=== PATIENT | female | born 1955 | race Caucasian/White ===

== ENCOUNTER 2016-12-03 00:17 | Observation (INO) | payer BC ==
[2016-12-03] MEDS ORDERED: ACETAMINOPHEN 325 MG TABLET PO ONE (00:26)
[2016-12-03] MEDS ORDERED: LIDOCAINE 2% VISCOUS SOLN 20 ML UDCUP PO ONE (01:38)
[2016-12-03] MEDS ORDERED: ONDANSETRON 4 MG TAB.RAPDIS PO ONE (01:38)
[2016-12-03] MEDS ORDERED: MAG HYDROX/AL HYDROX/SIMETH SUSP 30 ML UDCUP PO ONE (01:38)
[2016-12-03 02:11] LABS: ALANINE AMINOTRANSFERASE 30 U/L (9-52); ALBUMIN 4.7 g/dL (3.5-5.0); ALKALINE PHOSPHATASE 102 U/L (38-126); ANION GAP 16 (5-19); ASPARTATE AMINO TRANSFERASE 26 U/L (14-36); BILIRUBIN,DIRECT 0.5 mg/dL (0.0-0.4); BILIRUBIN,TOTAL 1.2 mg/dL (0.2-1.3); BLOOD UREA NITROGEN 12 mg/dL (7-20); CARBON DIOXIDE 26 mmol/L (22-30); CHLORIDE 101 mmol/L (98-107); CREATININE RESULT 0.95 mg/dL (0.52-1.25); GLUCOSE 126 mg/dL (75-110); LIPASE 22.6 U/L (23-300); POTASSIUM 3.9 mmol/L (3.6-5.0); SODIUM 143.4 mmol/L (137-145); TOTAL PROTEIN 8.2 g/dL (6.3-8.2)
[2016-12-03 02:19] LABS: ABSOLUTE BASOPHILS # (AUTO) 0.1 10^3/uL (0.0-0.2); ABSOLUTE EOSINOPHILS # (AUTO) 0.3 10^3/uL (0.0-0.6); ABSOLUTE LYMPHOCYTES (AUTO) 1.6 10^3/uL (0.5-4.7); ABSOLUTE MONOCYTES (AUTO) 0.8 10^3/uL (0.1-1.4); BASOPHILS % (AUTO) 0.8 % (0-2); EOSINOPHILS % (AUTO) 2.2 % (0-6); HEMATOCRIT 43.7 % (36.0-47.0); HEMOGLOBIN 14.9 g/dL (12.0-15.5); LYMPHOCYTES % (AUTO) 10.8 % (13-45); MEAN CORPUSCULAR HEMOGLOBIN 28.3 pg (27.0-33.4); MEAN CORPUSCULAR HGB CONC 34.2 g/dL (32.0-36.0); MEAN CORPUSCULAR VOLUME 83 fl (80-97); MONOCYTES % (AUTO) 5.5 % (3-13); RED BLOOD COUNT 5.28 10^6/uL (3.72-5.28); RED CELL DISTRIBUTION WIDTH 14.5 % (11.5-14.0); SEGMENTED NEUTROPHILS % (AUTO) 80.7 % (42-78); WHITE BLOOD COUNT 14.9 10^3/uL (4.0-10.5)
[2016-12-03] MEDS ORDERED: MORPHINE SULFATE 10 MG/ML INJ IV ONE (02:21)
[2016-12-03] MEDS ORDERED: ONDANSETRON HCL INJ/PF 4 MG/2 ML SDV IV ONE (02:27)
--- NOTE | 2016-12-03 02:46 | ER Document Report ---
ED GI/ - General Chief Complaint: Abdominal Pain Stated Complaint: ABDOMINAL PAIN Notes: Patient is a 60 year old female who presents emergency Department complaining of severe right upper quadrant epigastric pain that started Thursday and has become progressively worse over the past two days. She describes that pain as severe spasms with cramping. Nothing has improved her pain, has become more frequent since thursday, has had decreased appetite but originally got worse post prandial. Tonight has assocaited emesis, nausea. Admits to last BM Thursday and was loose. Denies fevers, chills Past medical history significant for hyperlipidemia, hypothyroidism, hypertension, depression. Denies any history of irritable bowel disease Past surgical history significant for thyroid resection, tubal ligation Social history denies any tobacco, alcohol or drug use. PCP: Carmelina HARDING with [facility] TRAVEL OUTSIDE OF THE [place] IN LAST 30 DAYS: No - Related Data Allergies/Adverse Reactions: codeine [Codeine] Allergy (Verified 04/30/15 14:01) Penicillins Adverse Reaction (Intermediate, Verified 03/09/15 10:09) yeast infection tetracycline [Tetracycline] Adverse Reaction (Intermediate, Verified 03/09/15 10 :09) yeast infection Past Medical History - Social History Smoking Status: Never Smoker Family History: Other Patient has suicidal ideation: No Patient has homicidal ideation: No - Past Medical History Cardiac Medical History: Reports: Hx Hypercholesterolemia, Hx Hypertension Denies: Hx Coronary Artery Disease, Hx Heart Attack Pulmonary Medical History: Denies: Hx Asthma, Hx Bronchitis, Hx COPD, Hx Pneumonia Neurological Medical History: Denies: Hx Cerebrovascular Accident, Hx Seizures Renal/ Medical History: Denies: Hx Peritoneal Dialysis Musculoskeltal Medical History: Denies Hx Arthritis Past Surgical History: Reports: Hx Thyroid Surgery - thyroidectomy, Hx Tonsillectomy, Hx Tubal Ligation. Denies: Hx Hysterectomy - Immunizations Immunizations up to date: Yes Hx Diphtheria, Pertussis, Tetanus Vaccination: Yes Review of Systems - Review of Systems Constitutional: No symptoms reported EENT: No symptoms reported Cardiovascular: No symptoms reported Respiratory: No symptoms reported Gastrointestinal: See HPI Genitourinary: No symptoms reported Female Genitourinary: No symptoms reported -: Yes All other systems reviewed and negative Physical Exam - Vital signs Vitals: Temp Pulse Resp BP Pulse Ox 97.9 F 92 20 183/111 H 97 12/03/16 00:20 12/03/16 00:20 12/03/16 00:20 12/03/16 00:20 12/03/16 00:20 - Notes Notes: PHYSICAL EXAM GENERAL: Alert, interacts well. HEAD: Normocephalic, atraumatic. EYES: Pupils equal, round, and reactive to light. Extraocular movements intact. ENT: Oral mucosa moist, tongue midline. NECK: Full range of motion. Supple. Trachea midline. LUNGS: Clear to auscultation bilaterally, no wheezes, rales, or rhonchi. No respiratory distress. HEART: Regular rate and rhythm. No murmurs, gallops, or rubs. ABDOMEN: Distended at epigastrum, moderatly tender with positive murphys sign, no peritonitis. No guarding, rebound, or rigidity.. Bowel sounds present in all 4 quadrants. EXTREMITIES: Moves all 4 extremities spontaneously. No edema, radial and dorsalis pedis pulses 2/4 bilaterally. No cyanosis. NEUROLOGICAL: Alert and oriented x4. Normal speech. PSYCH: Normal affect, normal mood. SKIN: Warm, dry, normal turgor. No rashes or lesions noted. Course - Re-evaluation Re-evalutation: 12/03/16 03:57 Patient is a 60-year-old female who is hemodynamically stable, mild distress but afebrile. History, physical exam, laboratory findings and imaging supportive of jose cystitis with a stone in the common bile duct as well as the gallbladder. Patient not tolerating by mouth with a leukocytosis 14.9. Discussed admission with surgeon bail bonding agent Dr. Yuriy Ruiz who recommends admission, initiating IV antibiotics and keeping her nothing by mouth. Discussed plan with patient is agreeable for admission and evaluation by surgeon. - Vital Signs Vital signs: Temp Pulse Resp BP Pulse Ox 97.9 F 92 20 183/111 H 97 12/03/16 00:20 12/03/16 00:20 12/03/16 00:20 12/03/16 00:20 12/03/16 00:20 - Laboratory Result Diagrams: 12/03/16 02:08 12/03/16 01:38 Laboratory results interpreted by me: 12/03/16 12/03/16 12/03/16 01:38 02:08 03:41 WBC 14.9 H RDW 14.5 H Seg Neutrophils % 80.7 H Lymphocytes % 10.8 L Absolute Neutrophils 12.0 H Glucose 126 H Direct Bilirubin 0.5 H Lipase 22.6 L Urine Protein 30 H - Diagnostic Test Radiology reviewed: Image reviewed, Reports reviewed Discharge - Discharge Clinical Impression: Cholecystitis with cholelithiasis Disposition: ADMITTED INPATIENT Admitting Provider: Surgicalist - Dr. Jim Ruiz Unit Admitted: Surgical Floor
[2016-12-03] MEDS ORDERED: CEFAZOLIN 1 GM/D5W RTU 50 ML IV ONE (03:59)
[2016-12-03] MEDS ORDERED: NORMAL SALINE 1000 ML 1,000 ML IV PRN (04:00)
[2016-12-03] MEDS ORDERED: PROPOFOL 0 ML IV ONE (04:09)
[2016-12-03 04:35] LABS: APPEARANCE,URINE CLEAR; BILIRUBIN,URINE NEGATIVE (NEGATIVE); GLUCOSE, URINE NEGATIVE (NEGATIVE); KETONES,URINE NEGATIVE (NEGATIVE); LEUKOCYTE ESTERASE,URINE NEGATIVE (NEGATIVE); NITRITE,URINE NEGATIVE (NEGATIVE); PROTEIN,URINE 30 mg/dL (NEGATIVE); URINE SPECIFIC GRAVITY 1.016; UROBILINOGEN,URINE NEGATIVE mg/dL (<2.0)
--- NOTE | 2016-12-03 10:03 | HISTORY AND PHYSICAL E ---
History and Physical NAME: CHADD VINSON : 1955 AGE: 60Y ADMITTED: 12/03/2016 ROOM: ED09 CHIEF COMPLAINT: Abdominal pains. HISTORY OF PRESENT ILLNESS: This is a 60-year-old female who complained of mild right upper quadrant pains about a week ago after a fatty meal. The pains worsened 2 days ago after a fatty meal and this was persistent and worse yesterday and went to the emergency room last night. Ultrasound of the gallbladder showed a gallstone, but no inflammation of the gallbladder wall. PAST HISTORY: 1. History of tubal ligation. 2. Hypertension. Takes Diovan for this. 3. Had thyroidectomy and subsequently placed on replacement and anti-cholesterol medication. SOCIAL HISTORY: Denies smoking or drinking or drug use. 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 FAMILY HISTORY: Strong for gallbladder disease. Her mother and daughter already had laparoscopic cholecystectomies for gallstones. ALLERGIES: 1. PENICILLIN. 2. TETRACYCLINE. PHYSICAL EXAMINATION: GENERAL: Well-developed, well-nourished 60-year-old female alert and oriented, complaining of epigastric pains and right upper quadrant pains. NECK: Supple. HEENT: PERRLA. LUNGS: Clear. HEART: Irregularly irregular sinus rhythm. ABDOMEN: Soft with tenderness in the epigastric and right upper quadrant areas. EXTREMITIES: No edema. REVIEW OF SYSTEMS: As in HPI, abdominal pains with nausea and vomiting. Also, had an episode of diarrhea 2 days ago. No dysuria, cough, or chest pains. Rest of the systems unremarkable. IMPRESSION: Acute calculous cholecystitis. PLAN: Patient for laparoscopic cholecystectomy. DICTATING PHYSICIAN: DIANE RENEE M.D. [id number] PHY#: [id number] ID: [id number] JOB#: [id number] ACCT: [id number] cc: >
[2016-12-03] MEDS ORDERED: DEXTROSE 40% GEL 15 GM TUBE PO PRN ×2 (10:19)
[2016-12-03] MEDS ORDERED: GLUCAGON,HUMAN RECOMB 1 MG INJ SUBCUT PRN (10:19)
[2016-12-03] MEDS ORDERED: DEXTROSE 50%-WATER 25 GM/50 ML DISP.SYRIN IV PRN ×2 (10:19)
[2016-12-03] MEDS ORDERED: HYDROMORPHONE HCL INJ/PF 2 MG/ML AMPULE IV PRN (10:23)
[2016-12-03] MEDS ORDERED: BUPIVACAINE HCL 0.25 % INJ/PF (2.5 MG/1 ML) 30 ML VIAL ONE (10:33)
[2016-12-03] MEDS ORDERED: PROPOFOL INJ 200 MG/20 ML VIAL IV ONE (11:13)
[2016-12-03] MEDS ORDERED: MIDAZOLAM 2 MG/2 ML INJ ONE (11:13)
[2016-12-03] MEDS ORDERED: HYDROMORPHONE HCL INJ/PF 2 MG/ML AMPULE ONE (11:13)
[2016-12-03] MEDS ORDERED: FENTANYL CITRATE INJ/PF 100 MCG/2 ML AMPUL ONE (11:13)
[2016-12-03] MEDS ORDERED: ACETAMINOPHEN 100 ML IV ONE (11:13)
[2016-12-03] MEDS ORDERED: CEFAZOLIN INJ 1 GM VIAL ONE ×2 (11:26→14:55)
[2016-12-03] MEDS ORDERED: DIPHENHYDRAMINE HCL 50 MG/ML VIAL IV PRN (11:55)
[2016-12-03] MEDS ORDERED: MORPHINE SULFATE 10 MG/ML INJ IV PRN (11:55)
[2016-12-03] MEDS ORDERED: FENTANYL CITRATE INJ/PF 100 MCG/2 ML AMPUL IV PRN ×3 (11:55)
[2016-12-03] MEDS ORDERED: PROMETHAZINE HCL INJ 25 MG/1 ML VIAL IV PRN (11:55)
[2016-12-03] MEDS ORDERED: MEPERIDINE HCL/PF INJ 25 MG/1 ML DISP.SYRIN IV PRN (11:55)
[2016-12-03] MEDS ORDERED: NALOXONE HCL INJ/PF 0.4 MG/1 ML SDV ONE (13:13)
[2016-12-03] MEDS ORDERED: ONDANSETRON HCL INJ/PF 4 MG/2 ML SDV IV PRN (14:12)
[2016-12-03] MEDS ORDERED: ONDANSETRON HCL INJ/PF 4 MG/2 ML SDV ONE (14:21)
[2016-12-03] MEDS ORDERED: DEXAMETHASONE SOD PHOSPHATE INJ 4 MG/1 ML VIAL ONE (14:21)
[2016-12-03] MEDS ORDERED: GLYCOPYRROLATE INJ 0.4 MG/2 ML VIAL ONE (14:21)
[2016-12-03] MEDS ORDERED: NEOSTIGMINE METHYLSULFATE 10 MG/10 ML VIAL ONE (14:21)
[2016-12-03] MEDS ORDERED: ROCURONIUM BROMIDE INJ 50 MG/5 ML VIAL IV ONE (14:21)
--- NOTE | 2016-12-03 16:40 | OPERATIVE REPORT E ---
Operative Report NAME: CHADD VINSON : 1955 AGE: 60Y DATE OF SURGERY: 12/03/2016 ROOM: 206 PREOPERATIVE DIAGNOSIS: ACUTE CALCULOUS CHOLECYSTITIS. POSTOPERATIVE DIAGNOSIS: ACUTE CALCULOUS CHOLECYSTITIS. OPERATION: Laparoscopic cholecystectomy. SURGEON: DIANE RENEE M.D. ANESTHESIA: General. INDICATIONS: This is a 61-year-old female with complaint of right upper quadrant pains after fatty meal last night. She came to the emergency room where an ultrasound of the gallbladder showed 1 cm gallstone. She is markedly tender in right upper quadrant. DESCRIPTION OF PROCEDURE: After adequate general anesthesia, the abdomen was then prepped and draped in the usual sterile fashion. Appropriate time-out was performed. Next, an infraumbilical incision made and the fascia identified and divided. A Alonso trocar was inserted into the abdominal cavity and CO2 insufflated through the trocar to a pressure of 15 mmHg. Camera was then inserted through the trocar and 3 other trocars placed under direct vision; a 12 mm in the subxiphoid and two 5 mm trocars in the right upper quadrant. The gallbladder was then identified and noted to be thick walled and markedly distended and grasper unable to grasp it. It was then evacuated through a needle passed through one of the trocars and about 50 mL of bile suctioned out. Next, the tip of the gallbladder was then grasped and another grasper at the area of the infundibulum. Cystic duct was then dissected. The cystic artery also identified. This established the critical view. Next, the cystic duct was subsequently triply clipped proximally and a single clip towards the gallbladder was placed. It was then divided through the 2 clips. Next, the cystic artery was clipped and divided with the use of harmonic rebeca. The gallbladder was then dissected off the liver bed. There was a lot of edema on the gallbladder and dissection was performed gingerly. There was inadvertant leak along the area on the cystic duct on the gallbladder side and this was then re-clipped. The area was then irrigated copiously with saline solution and most of the bile suctioned out. The gallbladder was then completely removed from the liver bed and placed in an Endobag and removed through the umbilical port. There was a single stone palpated. The liver bed was then inspected and no evidence of bleeding noted. It was further irrigated and then suctioned out. Next, all the trocars were then removed and CO2 allowed to come through the trocar sites. The infraumbilical fascial defect was then closed with a [id number] suture using 0 Vicryl and the subxiphoid fascial defect closed with a single suture of 0 Vicryl. All the skin incisions were then closed with subcuticular 4-0 Vicryl undyed. Sterile Dermabond was used as a dressing on top of the incisions. The patient tolerated the procedure well. Needle and sponge count were all correct. Estimated blood loss was minimal. The patient was then brought to the recovery room in satisfactory condition. DICTATING PHYSICIAN: DIANE RENEE M.D. [id number] Y#: [id number] ID: [id number] JOB#: [id number] ACCT: [id number] cc:DIANE RENEE M.D. >
[2016-12-03] MEDS ORDERED: CIPROFLOXACIN 400 MG/D5W RTU 400 MG/200 ML RTUPB IV SCH (18:00)
[2016-12-03] MEDS: NORMAL SALINE 1000 ML 1,000 ML IV PRN (18:10)
[2016-12-03] MEDS: CEFAZOLIN 1 GM/D5W RTU 1 GM/50 ML RTUPB IV SCH (18:11)
--- NOTE | 2016-12-03 21:17 | EKG REPORT ---
SEVERITY:- BORDERLINE ECG - SINUS RHYTHM BORDERLINE T ABNORMALITIES, DIFFUSE LEADS : Confirmed by: Scott Khan 03-Dec-2016 21:16:43
[2016-12-03] MEDS: OXYCODONE-ACETAMINOPHEN 5-325 MG TABLET PO PRN (21:45)
[2016-12-04] MEDS: CEFAZOLIN 1 GM/D5W RTU 1 GM/50 ML RTUPB IV SCH (01:48)
[2016-12-04] MEDS: NORMAL SALINE 1000 ML 1,000 ML IV PRN (01:48)
--- NOTE | 2016-12-04 07:48 | PROGRESS NOTE E ---
Progress Note NAME: CHADD VINSON : 1955 AGE: 60Y DATE: 12/04/2016 ROOM: [facility] SUBJECTIVE: Patient is postop day #1, post laparoscopic cholecystectomy for acute calculus cholecystitis. She is afebrile but tolerating a small amount of clear liquids this morning. OBJECTIVE: VITAL SIGNS: Her heart rate is at 68 per minute. ABDOMEN: Is soft with some pains and mild tenderness at the umbilical incision site. PLAN: 1. Continue in gradual increase in her diet and activity. 2. Continue IV antibiotics for the next 24 hours. 3. Possible discharge in 24 hours. DICTATING PHYSICIAN: DIANE RENEE M.D. [id number] PHY#: [id number] ID: [id number] JOB#: [id number] ACCT: [id number] cc: >
--- NOTE | 2016-12-04 08:02 | PDOC PROGRESS REPORT ---
Subjective Progress Note for:: 12/04/16 Subjective:: Feels much better. Still having some epigastric abdominal pain but the under control with Percocet. Tolerating a clear liquid diet well. Physical Exam Vital Signs: Temp Pulse Resp BP Pulse Ox 98.2 F 68 16 127/70 H 98 12/04/16 04:27 12/04/16 04:27 12/04/16 04:27 12/04/16 04:27 12/04/16 04:37 Pulse Oximeter Continuous Start: 12/03/16 18: 23 Freq: RTQ4 Status: Active Document 12/04/16 04:37 JSM (Rec: 12/04/16 04:38 [id number] [id number]) Pulse Oximetry Assessment Oxygen Saturation (92-100) 98 Oxygen Flow Rate (L/min) 2 Oxygen Delivery Method Nasal Cannula Fraction of Inspired Oxygen (FIO2) 28 Equipment Usage Equipment in Use Continuous SpO2 Machine # 14 Intake & Output 12/03/16 12/04/16 12/05/16 06:59 06:59 06:59 Intake Total 3100 Output Total 1420 Balance 1680 General appearance: PRESENT: no acute distress, cooperative Respiratory exam: PRESENT: clear to auscultation angelique Cardiovascular exam: PRESENT: RRR GI/Abdominal exam: PRESENT: other - Soft, nondistended, mild epigastric abdominal tenderness. Wound is clean dry and intact. Extremities exam: PRESENT: other - No swelling. Results Impressions: Chest X-Ray 12/03/16 00:00 IMPRESSION: NO ACUTE RADIOGRAPHIC FINDING IN THE CHEST. Abdomen Ultrasound 12/03/16 01:38 IMPRESSION: Cholelithiasis. Hepatic steatosis. Assessment & Plan - Diagnosis (1) Cholecystitis with cholelithiasis Is this a current diagnosis for this admission?: YesPlan: Status post laparoscopic cholecystectomy. Patient looks good. We'll discharge the patient home today.
[2016-12-04 08:53] VITALS: BP 127/70
[2016-12-04] MEDS: OXYCODONE-ACETAMINOPHEN 5-325 MG TABLET PO PRN (09:02)
--- NOTE | 2016-12-04 09:13 | DISCHARGE SUMMARY E ---
Discharge Summary NAME: CHADD VINSON : 1955 AGE: 60Y ADMITTED: 12/03/2016 DISCHARGED: 12/04/2016 DISCHARGE DIAGNOSIS: Acute cholecystitis. PROCEDURE PERFORMED DURING HOSPITALIZATION: Laparoscopic cholecystectomy performed by Dr. Ruiz on 12/03/2016. HOSPITAL COURSE: The patient underwent the above mentioned surgery. She did well postoperatively. She was tolerating a liquid diet well with good pain control at the time of discharge. The patient is now being discharged to home in good condition. DISCHARGE INSTRUCTIONS: She will follow up with [facility] within 2 weeks. She was encouraged to stay active at home, but avoid strenuous activity. She may resume her home medications. Additional medications Percocet 1-2 p.o. q. 4 hours p.r.n. pain. DICTATING PHYSICIAN: JERMAINE SANTIAGO M.D. [id number] PHY#: [id number] ID: [id number] JOB#: [id number] ACCT: [id number] cc:JERMAINE SANTIAGO M.D. [facility],
== END 2016-12-04 09:50 | disposition home or self-care (01) ==
LOC: ER 00:17 → UNDOADMIN 04:05 → EH 04:05 → 2N 10:13 → EH 10:13 → INTOOBSV 10:16 → 2N 10:16
PROC: 0FT44ZZ Resection of Gallbladder, Percutaneous Endoscopic Approach (ICD-10-PCS; principal; 2016-12-03 11:00)
DX: K80.10 Calculus of gallbladder with chronic cholecystitis without obstruction (principal); I10 Essential (primary) hypertension; K76.0 Fatty (change of) liver, not elsewhere classified; Z79.899 Other long term (current) drug therapy; Z83.79 Family history of other diseases of the digestive system; Z98.51 Tubal ligation status
CPT/HCPCS: 99285; 36415; 87205; 87070; 83690; 85025; 87075; 80053; 81001; 88304 ×2; 71010; 76705; 93005; 94799; 93010; 94762 ×2; 47562; J2250; J0690 ×3; J3490 ×2; J1100; S0119; J3010; J2270; J2310; J1170; J2405; J7030 ×2; J2704; J0131; 790; G0378

== ENCOUNTER 2016-12-09 09:25 | Observation (INO) | payer BC ==
--- NOTE | 2016-12-09 09:59 | ER Document Report ---
ED GI/ - General Chief Complaint: Upper Abdominal Pain Stated Complaint: POST OP PROBLEMS Time seen by provider: 09:59 Mode of Arrival: Ambulatory Information source: Patient Notes: 60-year-old female presents to ED for abdominal pain with nausea vomiting and diarrhea or since last night and has continued this morning. She states she had her gallbladder removed on 12/03/[address] Avila. She states that they mentioned something about her stone in the common bile duct before surgery but then they did not mention anything about it after surgery. TRAVEL OUTSIDE OF THE [place] IN LAST 30 DAYS: No - HPI Patient complains to provider of: Abdominal pain, Diarrhea, Vomiting Onset: Yesterday Timing/Duration: Intermittent Quality of pain: Cramping, Sharp Severity at maximum: Severe Severity in ED: Moderate Pain Level: 4 Location: RUQ Vaginal bleeding (Compared to normal period): None Menstrual period history: Post-menopausal Associated symptoms: Diarrhea, Nausea, Vomiting Exacerbated by: Movement, Food Relieved by: Denies Similar symptoms previously: Yes Recently seen / treated by doctor: Yes - Related Data Allergies/Adverse Reactions: codeine [Codeine] Allergy (Verified 12/09/16 09:27) Penicillins Adverse Reaction (Intermediate, Verified 12/09/16 09:27) yeast infection tetracycline [Tetracycline] Adverse Reaction (Intermediate, Verified 12/09/16 09 :27) yeast infection Past Medical History - General Information source: Patient - Social History Smoking Status: Never Smoker Cigarette use (# per day): No Chew tobacco use (# tins/day): No Smoking Education Provided: No Frequency of alcohol use: None Drug Abuse: None Lives with: Family Family History: Other Patient has suicidal ideation: No Patient has homicidal ideation: No - Past Medical History Cardiac Medical History: Reports: Hx Hypercholesterolemia, Hx Hypertension Pulmonary Medical History: Reports: None EENT Medical History: Reports: None Neurological Medical History: Reports: None Endocrine Medical History: Reports: None Renal/ Medical History: Reports: None Malignancy Medical History: Reports: None GI Medical History: Reports: None Musculoskeltal Medical History: Reports None Psychiatric Medical History: Reports: None Traumatic Medical History: Reports: None Infectious Medical History: Reports: None Past Surgical History: Reports: Hx Cholecystectomy, Hx Thyroid Surgery - thyroidectomy, Hx Tonsillectomy, Hx Tubal Ligation - Immunizations Immunizations up to date: Yes Hx Diphtheria, Pertussis, Tetanus Vaccination: Yes Review of Systems - Review of Systems Constitutional: Recent illness EENT: No symptoms reported Cardiovascular: No symptoms reported Respiratory: No symptoms reported Gastrointestinal: Abdominal pain, Diarrhea, Nausea, Vomiting Genitourinary: No symptoms reported Female Genitourinary: No symptoms reported Musculoskeletal: No symptoms reported Skin: No symptoms reported Hematologic/Lymphatic: No symptoms reported Neurological/Psychological: No symptoms reported -: Yes All other systems reviewed and negative Physical Exam - Vital signs Vitals: Temp Pulse Resp BP Pulse Ox 97.7 F 98 18 148/80 H 95 12/09/16 09:29 12/09/16 09:29 12/09/16 09:29 12/09/16 09:29 12/09/16 09:29 Interpretation: Normal - General General appearance: Appears well, Alert - HEENT Head: Normocephalic, Atraumatic Eyes: Normal Pupils: PERRL - Respiratory Respiratory status: No respiratory distress Chest status: Nontender Breath sounds: Normal Chest palpation: Normal - Cardiovascular Rhythm: Regular Heart sounds: Normal auscultation Murmur: No - Abdominal Inspection: Other - Recent gallbladder removal Distension: No distension Bowel sounds: Normal Tenderness: Tender - Upper abdominal pain Organomegaly: No organomegaly - Back Back: Normal, Nontender - Extremities General upper extremity: Normal inspection, Nontender, Normal color, Normal ROM , Normal temperature General lower extremity: Normal inspection, Nontender, Normal color, Normal ROM , Normal temperature, Normal weight bearing. No: Ana's sign - Neurological Neuro grossly intact: Yes Cognition: Normal Orientation: AAOx4 Lyric Coma Scale Eye Opening: Spontaneous [place] Coma Scale Verbal: Oriented Lyric Coma Scale Motor: Obeys Commands Lyric Coma Scale Total: 15 Speech: Normal Motor strength normal: LUE, RUE, LLE, RLE Sensory: Normal - Psychological Associated symptoms: Normal affect, Normal mood - Skin Skin Temperature: Warm Skin Moisture: Dry Skin Color: Normal Course - Re-evaluation Re-evalutation: 12/09/16 17:[address] Bateman concerning the upper abdominal pain postcholecystectomy. A ultrasound was ordered and completed and negative. A CT abdomen and pelvis with IV and oral contrast was ordered and completed. Dr. Shay Santos the surgeon was consult to and he has been to see the patient and has admitted the patient for observation postcholecystectomy abdominal pain. Patient is to go to a surgical floor. Patient has been medicated with Zofran and morphine. She has had IV fluids running throughout the day. - Vital Signs Vital signs: Temp Pulse Resp BP Pulse Ox 97.7 F 98 14 133/73 H 97 12/09/16 09:29 12/09/16 09:29 12/09/16 16:01 12/09/16 16:00 12/09/16 16:01 - Laboratory Result Diagrams: 12/09/16 11:12 12/09/16 11:12 Laboratory results interpreted by me: 12/09/16 12/09/16 12/09/16 11:12 11:12 13:05 WBC 15.3 H RBC 5.39 H RDW 14.3 H Seg Neutrophils % 89.1 H Lymphocytes % 5.5 L Absolute Neutrophils 13.6 H Potassium 3.5 L Est GFR ( Amer) 58 L Est GFR (Non-Af Amer) 48 L Glucose 142 H Total Bilirubin 1.4 H Total Protein 8.3 H Lipase 16.9 L Urine Protein 100 H Ur Leukocyte Esterase TRACE H - Diagnostic Test Radiology reviewed: Image reviewed, Reports reviewed Discharge - Discharge Clinical Impression: abdominal pain postcholecystectomy Disposition: ADMITTED OBSERVATION Admitting Provider: Surgicalist - Dr. Shay Santos Unit Admitted: Surgical Floor
[2016-12-09] MEDS ORDERED: ONDANSETRON HCL INJ/PF 4 MG/2 ML SDV IV ONE (10:17)
[2016-12-09] MEDS ORDERED: NORMAL SALINE 1000 ML 1,000 ML IV ONE ×4 (10:50→16:51)
[2016-12-09] MEDS ORDERED: MORPHINE SULFATE 10 MG/ML INJ IV ONE ×2 (10:52→16:14)
[2016-12-09 11:26] LABS: ABSOLUTE BASOPHILS # (AUTO) 0.2 10^3/uL (0.0-0.2); ABSOLUTE LYMPHOCYTES (AUTO) 0.8 10^3/uL (0.5-4.7); ABSOLUTE MONOCYTES (AUTO) 0.6 10^3/uL (0.1-1.4); ABSOLUTE NEUT (AUTO) 13.6 10^3/uL (1.7-8.2); BASOPHILS % (AUTO) 1.4 % (0-2); EOSINOPHILS % (AUTO) 0.2 % (0-6); HEMOGLOBIN 15.1 g/dL (12.0-15.5); HGB HCT DIFFERENCE 0.3; LYMPHOCYTES % (AUTO) 5.5 % (13-45); MEAN CORPUSCULAR HEMOGLOBIN 28.1 pg (27.0-33.4); MEAN CORPUSCULAR HGB CONC 33.6 g/dL (32.0-36.0); MEAN CORPUSCULAR VOLUME 84 fl (80-97); MONOCYTES % (AUTO) 3.8 % (3-13); RED BLOOD COUNT 5.39 10^6/uL (3.72-5.28); RED CELL DISTRIBUTION WIDTH 14.3 % (11.5-14.0); SEGMENTED NEUTROPHILS % (AUTO) 89.1 % (42-78); WHITE BLOOD COUNT 15.3 10^3/uL (4.0-10.5)
[2016-12-09 11:53] LABS: ALANINE AMINOTRANSFERASE 28 U/L (9-52); ALBUMIN 4.6 g/dL (3.5-5.0); ALKALINE PHOSPHATASE 114 U/L (38-126); ANION GAP 19 (5-19); ASPARTATE AMINO TRANSFERASE 24 U/L (14-36); BILIRUBIN,DIRECT 0.4 mg/dL (0.0-0.4); BILIRUBIN,TOTAL 1.4 mg/dL (0.2-1.3); BLOOD UREA NITROGEN 9 mg/dL (7-20); CALCIUM 10.1 mg/dL (8.4-10.2); CARBON DIOXIDE 27 mmol/L (22-30); CHLORIDE 99 mmol/L (98-107); CREATININE RESULT 1.15 mg/dL (0.52-1.25); GLUCOSE 142 mg/dL (75-110); LIPASE 16.9 U/L (23-300); POTASSIUM 3.5 mmol/L (3.6-5.0); SODIUM 144.5 mmol/L (137-145); TOTAL PROTEIN 8.3 g/dL (6.3-8.2)
[2016-12-09 14:18] LABS: APPEARANCE,URINE SLIGHTLY-CLOUDY; BILIRUBIN,URINE NEGATIVE (NEGATIVE); GLUCOSE, URINE NEGATIVE (NEGATIVE); KETONES,URINE NEGATIVE (NEGATIVE); LEUKOCYTE ESTERASE,URINE TRACE (NEGATIVE); NITRITE,URINE NEGATIVE (NEGATIVE); PROTEIN,URINE 100 mg/dL (NEGATIVE); URINE SPECIFIC GRAVITY 1.015; UROBILINOGEN,URINE NEGATIVE mg/dL (<2.0)
[2016-12-09] MEDS ORDERED: HYDROMORPHONE HCL INJ/PF 2 MG/ML AMPULE IV PRN ×2 (16:40→16:47)
[2016-12-09] MEDS ORDERED: ONDANSETRON HCL INJ/PF 4 MG/2 ML SDV IV PRN (16:48)
[2016-12-09] MEDS: LEVOFLOXACIN 750 MG/D5W RTU 750 MG/150 ML RTUPB IV SCH (17:07)
--- NOTE | 2016-12-09 18:13 | HISTORY AND PHYSICAL E ---
History and Physical NAME: CHADD VINSON : 1955 AGE: 60Y ADMITTED: 12/09/2016 ROOM: ED07 REASON FOR ADMISSION: Abdominal pain. HISTORY OF PRESENT ILLNESS: The patient is a 60-year-old female who on 12/03/2016 underwent laparoscopic cholecystectomy for acute cholecystitis. She was discharged afterwards. She continued to have epigastric pain afterwards. She would have the pain come and go or wax and wane. At this time, she has also had loose bowel movements along with nausea and vomiting. She has been throwing up yellowish type of fluid and is not able to keep anything other than water down. She has not had any fever or chills. ALLERGIES: 1. PENICILLIN. 2. TETRACYCLINE. PAST SURGICAL HISTORY: 1. Tubal ligation. 2. Thyroidectomy. MEDICAL PROBLEMS: 1. Hypothyroidism. 2. Hypertension. 3. Hypercholesterolemia. HABITS: The patient denies any smoking, alcohol or drug use. FAMILY HISTORY: Family history of gallstones. MEDICATIONS: 1. Diovan. 2. Synthroid. 3. Crestor. REVIEW OF SYSTEMS: A complete review of systems was obtained. Pertinent positives are: CONSTITUTIONAL: Not feeling well. GASTROINTESTINAL: Abdominal pain, nausea, vomiting, and diarrhea. A 12-point review of systems was obtained with pertinent positives discussed and all others being negative. PHYSICAL EXAMINATION: VITAL SIGNS: Blood pressure 133/73. Heart rate 71. Temperature 97.7. GENERAL: The patient is lying in bed. She is in mild distress secondary to abdominal symptoms. EYES: Anicteric. NECK: No lymphadenopathy. HEART: Regular. LUNGS: Clear. BACK: Nontender. ABDOMEN: Soft. Mildly distended. High-pitched bowel sounds. Mild epigastric tenderness. Incisions are healing well without any evidence of infection. EXTREMITIES: No edema or cyanosis. NEUROLOGIC: Patient appears to be neurologically intact without any deficits. PSYCHIATRIC: The patient is coherent, cooperative, and appears to answer questions fully. DIAGNOSTIC DATA: White blood cell count of 15,000; hemoglobin 15; platelets 348. Total bilirubin of 1.4, direct 0.4, AST 24, ALT 28, alkaline phosphatase 114. CT scan of the abdomen and pelvis shows fluid in the pelvis with none in the gallbladder fossa. Ultrasound of the right upper quadrant was normal. ASSESSMENT: 1. Recent history of laparoscopic cholecystectomy with continued abdominal pain after surgery along with mildly elevated bilirubin and white blood cell count. She does have fluid in the pelvis on CT scan. Even though there is no fluid in the gallbladder fossa, my main focus would be to rule out a bile leak. Therefore, would obtain a hepatobiliary scan when available. 2. Hypertension on antihypertensives. 3. Hypothyroidism on medications. PLAN: 1. The patient will be admitted to the hospital. 2. N.p.o. 3. IV fluids. 4. IV antibiotics. 5. Hepatobiliary scan to rule out bile leak status post cholecystectomy as the first test for evaluating her problem. DICTATING PHYSICIAN: YARIEL HAMMONDS M.D. [id number] PHY#: [id number] ID: [id number] JOB#: [id number] ACCT: [id number] cc:[place]IA [place]
[2016-12-09] MEDS: METRONIDAZOLE 500 MG/NS RTU 100 ML IV SCH (18:31)
[2016-12-10] MEDS: METRONIDAZOLE 500 MG/NS RTU 100 ML IV SCH ×5 (00:35→23:14)
[2016-12-10 07:04] LABS: HEMATOCRIT 32.5 % (36.0-47.0); HGB HCT DIFFERENCE 0.5; MEAN CORPUSCULAR HEMOGLOBIN 28.6 pg (27.0-33.4); MEAN CORPUSCULAR HGB CONC 33.9 g/dL (32.0-36.0); MEAN CORPUSCULAR VOLUME 84 fl (80-97); RED BLOOD COUNT 3.86 10^6/uL (3.72-5.28); RED CELL DISTRIBUTION WIDTH 14.8 % (11.5-14.0)
[2016-12-10 07:05] LABS: ALANINE AMINOTRANSFERASE 29 U/L (9-52); ALBUMIN 3.2 g/dL (3.5-5.0); ALKALINE PHOSPHATASE 65 U/L (38-126); ANION GAP 12 (5-19); ASPARTATE AMINO TRANSFERASE 19 U/L (14-36); BILIRUBIN,TOTAL 0.8 mg/dL (0.2-1.3); BLOOD UREA NITROGEN 12 mg/dL (7-20); CALCIUM 8.3 mg/dL (8.4-10.2); CARBON DIOXIDE 27 mmol/L (22-30); CHLORIDE 105 mmol/L (98-107); CREATININE RESULT 0.99 mg/dL (0.52-1.25); GLUCOSE 85 mg/dL (75-110); LIPASE 10.7 U/L (23-300); POTASSIUM 3.5 mmol/L (3.6-5.0); SODIUM 143.6 mmol/L (137-145); TOTAL PROTEIN 5.7 g/dL (6.3-8.2)
--- NOTE | 2016-12-10 09:08 | PROGRESS NOTE E ---
Progress Note NAME: CHADD VINSON : 1955 AGE: 60Y DATE: 12/10/2016 ROOM: 205 SUBJECTIVE: The patient is 1 week out from laparoscopic cholecystectomy, now with abdominal distention, pain, nausea, and loose stools. OBJECTIVE: GENERAL: The patient feels better today. She has not had any bowel movements. She is still having some bloating. ABDOMEN: Soft, mildly distended, tender around the umbilical area with incisions healing without any evidence of infection. DIAGNOSTIC DATA: White blood cell count of 8, hemoglobin 11. Liver function tests are within normal limits. ASSESSMENT: STATUS POST LAPAROSCOPIC CHOLECYSTECTOMY 1 WEEK AGO WITH ABDOMINAL PAIN, NAUSEA, DISTENTION, VOMITING, AND DIARRHEA. She feels better now that she was on antibiotics overnight. She had fluid in her pelvis on CT scan. A biliary leak needs to be ruled out, although is unlikely. She will be having a hepatobiliary scan to rule out this possible leak. There is a chance that she may have C. difficile colitis as a cause, although we are not able to collect the stool sample at this time as she has not had any further bowel movements. The Flagyl may be helping this if she indeed does have C. difficile colitis. PLAN: 1. Hepatobiliary scan to rule out bile leak. 2. Stool study to rule out C. difficile colitis. 3. Continue Flagyl. DICTATING PHYSICIAN: YARIEL HAMMONDS M.D. [id number] [id number] PHY#: [id number] ID: [id number] JOB#: [id number] ACCT: [id number] cc: >
[2016-12-10] MEDS ORDERED: (PENDING PHARMACY ID) (Valsartan/Hydrochlorothiazide [Diovan Hct 320-25 Mg Tablet] 1 TAB) PO SCH (10:00)
[2016-12-10] MEDS: LEVOTHYROXINE SODIUM 0.112 MG TABLET PO SCH (10:06)
[2016-12-10] MEDS: HYDROCHLOROTHIAZIDE 25 MG TABLET PO SCH (10:06)
[2016-12-10] MEDS: SERTRALINE HCL 50 MG TABLET PO SCH (10:06)
[2016-12-10] MEDS: VALSARTAN 160 MG TABLET PO SCH (10:07)
[2016-12-10] MEDS: LEVOFLOXACIN 750 MG/D5W RTU 750 MG/150 ML RTUPB IV SCH (17:33)
[2016-12-10] MEDS: NORMAL SALINE 1000 ML 1,000 ML IV PRN (23:24)
[2016-12-11] MEDS: METRONIDAZOLE 500 MG/NS RTU 100 ML IV SCH ×3 (05:09→17:17)
[2016-12-11 06:44] LABS: ABSOLUTE BASOPHILS # (AUTO) 0.1 10^3/uL (0.0-0.2); ABSOLUTE EOSINOPHILS # (AUTO) 0.3 10^3/uL (0.0-0.6); ABSOLUTE LYMPHOCYTES (AUTO) 1.4 10^3/uL (0.5-4.7); ABSOLUTE MONOCYTES (AUTO) 0.7 10^3/uL (0.1-1.4); ABSOLUTE NEUT (AUTO) 6.1 10^3/uL (1.7-8.2); BASOPHILS % (AUTO) 0.9 % (0-2); EOSINOPHILS % (AUTO) 3.2 % (0-6); HEMATOCRIT 32.6 % (36.0-47.0); HEMOGLOBIN 11.2 g/dL (12.0-15.5); LYMPHOCYTES % (AUTO) 16.7 % (13-45); MEAN CORPUSCULAR HEMOGLOBIN 28.6 pg (27.0-33.4); MEAN CORPUSCULAR HGB CONC 34.4 g/dL (32.0-36.0); MEAN CORPUSCULAR VOLUME 83 fl (80-97); RED BLOOD COUNT 3.92 10^6/uL (3.72-5.28); RED CELL DISTRIBUTION WIDTH 14.4 % (11.5-14.0); SEGMENTED NEUTROPHILS % (AUTO) 71.2 % (42-78); WHITE BLOOD COUNT 8.6 10^3/uL (4.0-10.5)
[2016-12-11 06:56] LABS: ALANINE AMINOTRANSFERASE 29 U/L (9-52); ALBUMIN 3.7 g/dL (3.5-5.0); ALKALINE PHOSPHATASE 81 U/L (38-126); ANION GAP 14 (5-19); ASPARTATE AMINO TRANSFERASE 21 U/L (14-36); BILIRUBIN,DIRECT 0.5 mg/dL (0.0-0.4); BILIRUBIN,TOTAL 0.8 mg/dL (0.2-1.3); BLOOD UREA NITROGEN 9 mg/dL (7-20); CALCIUM 9.1 mg/dL (8.4-10.2); CARBON DIOXIDE 27 mmol/L (22-30); CHLORIDE 103 mmol/L (98-107); GLUCOSE 86 mg/dL (75-110); POTASSIUM 3.6 mmol/L (3.6-5.0); SODIUM 144.2 mmol/L (137-145); TOTAL PROTEIN 6.6 g/dL (6.3-8.2)
[2016-12-11] MEDS: LEVOTHYROXINE SODIUM 0.112 MG TABLET PO SCH (08:50)
[2016-12-11] MEDS: FAMOTIDINE INJ/PF 20 MG/2 ML SDV IV SCH ×2 (09:42→21:59)
[2016-12-11] MEDS: HYDROCHLOROTHIAZIDE 25 MG TABLET PO SCH (09:43)
[2016-12-11] MEDS: SERTRALINE HCL 50 MG TABLET PO SCH (09:43)
[2016-12-11] MEDS: VALSARTAN 160 MG TABLET PO SCH (09:44)
--- NOTE | 2016-12-11 11:18 | PROGRESS NOTE E ---
Progress Note NAME: CHADD VINSON : 1955 AGE: 60Y DATE: 12/11/2016 ROOM: 205 SUBJECTIVE: The patient is a 60-year-old female that was admitted for nausea and some abdominal pain after a cholecystectomy. In the last 24 hours, the pain has resolved. She has an increased desire to intake food and would like to go home. OBJECTIVE: Her abdominal exam is unremarkable with no abdominal pain. ASSESSMENT AND PLAN: Patient is improved. Will increase her diet to full liquids. If she tolerates this overnight, will plan on sending her home. DICTATING PHYSICIAN: SERGIO FUENTES M.D. [id number] PHY#: [id number] ID: [id number] JOB#: [id number] ACCT: [id number] cc: >
[2016-12-11] MEDS: NORMAL SALINE 1000 ML 1,000 ML IV PRN (12:05)
[2016-12-12] MEDS: LEVOTHYROXINE SODIUM 0.112 MG TABLET PO SCH (07:57)
[2016-12-12 08:31] VITALS: BP 147/82
[2016-12-12] MEDS: VALSARTAN 160 MG TABLET PO SCH (10:07)
[2016-12-12] MEDS: FAMOTIDINE INJ/PF 20 MG/2 ML SDV IV SCH (10:07)
[2016-12-12] MEDS: SERTRALINE HCL 50 MG TABLET PO SCH (10:08)
[2016-12-12] MEDS: HYDROCHLOROTHIAZIDE 25 MG TABLET PO SCH (10:09)
--- NOTE | 2016-12-12 10:53 | DISCHARGE SUMMARY E ---
Discharge Summary NAME: CHADD VINSON : 1955 AGE: 60Y ADMITTED: 12/09/2016 DISCHARGED: 12/12/2016 REASON FOR ADMISSION: She was admitted by Dr. Santos because of abdominal pain. HISTORY OF PRESENT ILLNESS: She is a 60-year-old female who on 12/03/2016 had a laparoscopic cholecystectomy for acute cholecystitis. She was discharged afterward. She continued to have abdominal pain. The pain would come and go and wax and wane. She has also been having loose bowel movements along with nausea and vomiting. She has been throwing up yellowish fluid and is not able to keep anything other than water down. She denied fevers or chills. ALLERGIES: 1. PENICILLIN. 2. TETRACYCLINE. PAST SURGICAL HISTORY: Remarkable for tubal ligation, a thyroidectomy and a recent cholecystectomy. PAST MEDICAL HISTORY: Her medical problems show that she is hypothyroid, hypertensive and has hypercholesterolemia. SOCIAL HISTORY: Denies smoking, alcohol or drug use. MEDICATIONS: Her medications on admission were Diovan, Synthroid and Crestor. PATIENT'S COURSE IN THE HOSPITAL: She was started on IV antibiotics empirically. Her labs were normal. She was kept n.p.o. Gradually she felt better and was able to eat a diet, and the nausea and vomiting and epigastric pain diminished. At this point she is tolerating a regular diet. She still continues to have loose bowel movements; however, she was on antibiotics. C. diff toxin was negative. She is being discharged on a regular diet and will follow up with a surgical PA at [facility] on 12/18/2016. I recommend that she continue on the low-fat diet. *------* [address]. I would avoid lifting greater than 10 pounds. She can shower or bathe as needed. She does not require any further pain medications. DICTATING PHYSICIAN: SERGIO FUENTES M.D. [id number] PHY#: [id number] ID: [id number] JOB#: [id number] ACCT: [id number] cc:YARIEL SANTOS M.D. SERGIO FUENTES M.D. >
[2016-12-12] MEDS ORDERED: ATORVASTATIN CALCIUM 20 MG TABLET PO SCH (22:00)
[2016-12-13] MEDS ORDERED: CHOLECALCIFEROL (D3) 1,000 UNIT TABLET PO SCH (10:00)
== END 2016-12-12 11:27 | disposition home or self-care (01) ==
LOC: ER 09:25 → EH 16:40 → 2N 12-10 04:10 → 2S 12-11 16:03
PROVIDERS: ADMIT Surgery; ATTEND Surgery
DX: R10.13 Epigastric pain (principal); R11.2 Nausea with vomiting, unspecified; R19.7 Diarrhea, unspecified; Z90.49 Acquired absence of other specified parts of digestive tract; E03.9 Hypothyroidism, unspecified; I10 Essential (primary) hypertension; E80.7 Disorder of bilirubin metabolism, unspecified; D72.829 Elevated white blood cell count, unspecified; R14.0 Abdominal distension (gaseous); E78.00 Pure hypercholesterolemia, unspecified; Z98.51 Tubal ligation status; Z88.0 Allergy status to penicillin; Z88.3 Allergy status to other anti-infective agents; Z83.79 Family history of other diseases of the digestive system
CPT/HCPCS: 96376; 99285; 96361; 96375; 96365; 96367; 36415 ×3; 87040; 83690 ×2; 85025 ×2; 85027; 80053 ×3; 81001; 87493 ×2; 74020; 76705; 78226; 74177; 94799; G0378 ×5; A9537; J2270; J1170; J2405; J7030 ×3; S0028 ×2; J1956 ×2; Q9969

== ENCOUNTER 2016-12-20 22:31 | Emergency (ER) | payer BC ==
[2016-12-20] MEDS ORDERED: PROMETHAZINE HCL INJ 25 MG/1 ML VIAL IM ONE (23:16)
[2016-12-20] MEDS ORDERED: DICYCLOMINE HCL INJ 20 MG/2 ML AMPULE IM ONE (23:17)
--- NOTE | 2016-12-20 23:19 | ER Document Report ---
ED General - General Chief Complaint: Post Surgical Pain Stated Complaint: POST OP COMPLICATIONS Time Seen by Provider: 12/20/16 23:06 Notes: Patient is a 58-year-old female presents with complaint of postoperative pain. She had a laparoscopic cholecystectomy on December 03. She was readmitted on November 10 because of ongoing pain and vomiting. She says today she started having spasm and pain or upper abdomen. Less by me was Thursday. She saw the surgery clinic on . She has a follow up appointment in 4 weeks. She says she talked to surgery clinic last night because of the ongoing pain in the told her to call back on Thursday if she is still having pain in her bowel movements. Said the pain became worse tonight. The pain is epigastric and left upper quadrant. Says is a spasm type pain. She's had some nausea and dry heaving. She has not eaten much at home. She's had no fevers. TRAVEL OUTSIDE OF THE [place] IN LAST 30 DAYS: No - Related Data Allergies/Adverse Reactions: codeine [Codeine] Allergy (Verified 12/20/16 22:33) Penicillins Adverse Reaction (Intermediate, Verified 12/20/16 22:33) yeast infection tetracycline [Tetracycline] Adverse Reaction (Intermediate, Verified 12/20/16 22 :33) yeast infection Past Medical History - Social History Smoking Status: Never Smoker Frequency of alcohol use: None Drug Abuse: None Family History: Other - Past Medical History Cardiac Medical History: Reports: Hx Hypercholesterolemia, Hx Hypertension Denies: Hx Coronary Artery Disease, Hx Heart Attack Pulmonary Medical History: Denies: Hx Asthma, Hx Bronchitis, Hx COPD, Hx Pneumonia Neurological Medical History: Denies: Hx Cerebrovascular Accident, Hx Seizures Renal/ Medical History: Denies: Hx Peritoneal Dialysis Musculoskeltal Medical History: Denies Hx Arthritis Psychiatric Medical History: Denies: Hx Depression Past Surgical History: Reports: Hx Cholecystectomy, Hx Thyroid Surgery - thyroidectomy, Hx Tonsillectomy, Hx Tubal Ligation. Denies: Hx Hysterectomy - Immunizations Immunizations up to date: Yes Hx Diphtheria, Pertussis, Tetanus Vaccination: Yes Review of Systems - Review of Systems Notes: My Normal Review Basic REVIEW OF SYSTEMS: CONSTITUTIONAL : Denies fever, chills, or sweats. Denies recent illness. EENT: Denies eye, ear, throat, or mouth pain or symptoms. Denies nasal or sinus congestion. RESPIRATORY: Denies cough, cold, or chest congestion. Denies shortness of breath, difficulty breathing, or wheezing. GASTROINTESTINAL: Moderate epigastric and left upper quadrant abdominal pain. Some nausea and vomiting. Denies constipation. Last BM: GENITOURINARY: Denies difficulty urinating, painful urination, burning, frequency, or blood in urine.: MUSCULOSKELETAL: Denies neck or back pain or joint pain or swelling. SKIN: Denies rash or skin lesions. NEUROLOGICAL: Denies altered mental status or loss of consciousness. Denies headache. Denies weakness or paralysis or loss of use of either side. Denies problems with gait or speech. Denies sensory or motor loss.. ALL OTHER SYSTEMS REVIEWED AND NEGATIVE. Physical Exam - Vital signs Vitals: Temp Pulse Resp BP Pulse Ox 98.4 F 102 H 20 177/104 H 96 12/20/16 22:34 12/20/16 22:34 12/20/16 22:34 12/20/16 22:34 12/20/16 22:34 - Notes Notes: General Appearance: Well nourished, alert, cooperative, no acute distress, moderate obvious discomfort. Vitals: reviewed, See vital signs table. Head: no swelling or tenderness to the head Eyes: PERRL, EOMI, Conjuctiva clear Mouth: No decreasd moisture Throat: No tonsillar inflammation, No airway obstruction Neck: Supple, no neck tenderness Lungs: No wheezing, No rales, No rhonci, No accessory muscle use, good air exchange bilaterally. Heart: Normal rate, Regular rythm, No murmur, no rub Abdomen: Normal BS, soft, No rigidity, pain over epigastrium and left upper quadrant. Abdominal tenderness, No guarding, no rebound, no abdominal masses, no organomegaly. Surgical sites are normal-appearing without any redness or erythema. Extremities: strength 5/5 in all extremities, good pulses in all extremities, no swelling or tenderness in the extremities, no edema. Skin: warm, dry, appropriate color, no rash Neuro: speech clear, oriented x 3, normal affect, responds appropriately to questions. Course - Vital Signs Vital signs: Temp Pulse Resp BP Pulse Ox 98.4 F 60 18 138/87 H 95 12/20/16 22:34 12/21/16 03:18 12/21/16 03:18 12/21/16 03:18 12/21/16 03:18 - Laboratory Result Diagrams: 12/20/16 23:40 12/20/16 23:40 Laboratory results interpreted by me: 12/20/16 12/20/16 12/20/16 23:40 23:40 23:40 WBC 11.0 H RDW 14.4 H Seg Neutrophils % 78.9 H Lymphocytes % 11.0 L Absolute Neutrophils 8.7 H Chloride 96 L Glucose 124 H Lipase 15.5 L Urine Ketones TRACE H - Transfer of Care Notes: 12/21/16 05:55 Patient is a large prominence after the enema. She looks and feels improved. I suspect that the pain she was having spotting bowel spasms related to significant constipation from being on opiate pain medicines. I encouraged her no longer take opiate pain medicines as they're not helping her pain and seemed to make her worse. I will place her on Bentyl as well as Phenergan. Mental flank and worked well for her here. I encourage her to follow closely with her surgeon. Patient encouraged return to ER if she has fevers, worsening pain, or vomiting. Patient agrees with plan and will be discharged home. Dictation of this chart was performed using voice recognition software; therefore, there may be some unintended grammatical errors. Discharge - Discharge Clinical Impression: Abdominal pain Qualifiers: Abdominal location: epigastric Qualified Code(s): R10.13 - Epigastric pain Condition: Good Disposition: HOME, SELF-CARE Additional Instructions: Please stop taking the hydrocodone medication. Please be aware that the phenergan may make you sleepy. Please follow up with your surgeon. please return to the ER immediately if you have worsening pain, fevers, or recurrent vomiting. Please stop taking the Miralax if your stool starts to become loose or liquid appearing. Prescriptions: Dicyclomine HCl [Bentyl 10 mg Capsule] 1 cap PO TID #21 cap Polyethylene Glycol 3350 [Miralax] 1 cap PO DAILY #527 powder Promethazine HCl [Phenergan 25 mg Tablet] 1 tab PO Q6H PRN #15 tablet PRN Reason: Referrals: CHIN MARK MD [Primary Care Provider] - Follow up in 3-5 days
[2016-12-20 23:51] LABS: ABSOLUTE BASOPHILS # (AUTO) 0.1 10^3/uL (0.0-0.2); ABSOLUTE EOSINOPHILS # (AUTO) 0.2 10^3/uL (0.0-0.6); ABSOLUTE LYMPHOCYTES (AUTO) 1.2 10^3/uL (0.5-4.7); ABSOLUTE MONOCYTES (AUTO) 0.8 10^3/uL (0.1-1.4); ABSOLUTE NEUT (AUTO) 8.7 10^3/uL (1.7-8.2); BASOPHILS % (AUTO) 0.6 % (0-2); EOSINOPHILS % (AUTO) 2.1 % (0-6); HEMATOCRIT 43.5 % (36.0-47.0); HEMOGLOBIN 14.9 g/dL (12.0-15.5); HGB HCT DIFFERENCE 1.2; MEAN CORPUSCULAR HEMOGLOBIN 28.7 pg (27.0-33.4); MEAN CORPUSCULAR HGB CONC 34.2 g/dL (32.0-36.0); MEAN CORPUSCULAR VOLUME 84 fl (80-97); MONOCYTES % (AUTO) 7.4 % (3-13); RED BLOOD COUNT 5.19 10^6/uL (3.72-5.28); RED CELL DISTRIBUTION WIDTH 14.4 % (11.5-14.0); SEGMENTED NEUTROPHILS % (AUTO) 78.9 % (42-78)
[2016-12-20] MEDS ORDERED: PROMETHAZINE HCL INJ 50 MG/1 ML VIAL ONE (23:54)
[2016-12-21 00:01] LABS: APPEARANCE,URINE CLEAR; BILIRUBIN,URINE NEGATIVE (NEGATIVE); GLUCOSE, URINE NEGATIVE (NEGATIVE); KETONES,URINE TRACE mg/dL (NEGATIVE); LEUKOCYTE ESTERASE,URINE NEGATIVE (NEGATIVE); NITRITE,URINE NEGATIVE (NEGATIVE); PROTEIN,URINE NEGATIVE (NEGATIVE); URINE SPECIFIC GRAVITY 1.012; UROBILINOGEN,URINE NEGATIVE mg/dL (<2.0)
[2016-12-21 00:15] LABS: ALANINE AMINOTRANSFERASE 29 U/L (9-52); ALBUMIN 4.7 g/dL (3.5-5.0); ALKALINE PHOSPHATASE 101 U/L (38-126); ANION GAP 17 (5-19); ASPARTATE AMINO TRANSFERASE 26 U/L (14-36); BILIRUBIN,DIRECT 0.4 mg/dL (0.0-0.4); BILIRUBIN,TOTAL 1.2 mg/dL (0.2-1.3); BLOOD UREA NITROGEN 12 mg/dL (7-20); CARBON DIOXIDE 30 mmol/L (22-30); CHLORIDE 96 mmol/L (98-107); CREATININE RESULT 0.86 mg/dL (0.52-1.25); GLUCOSE 124 mg/dL (75-110); LIPASE 15.5 U/L (23-300); POTASSIUM 3.6 mmol/L (3.6-5.0); SODIUM 142.6 mmol/L (137-145)
[2016-12-21] MEDS ORDERED: MINERAL OIL 30 ML UDCUP PR ONE (01:09)
[2016-12-21] MEDS ORDERED: DICYCLOMINE HCL 20 MG TABLET PO ONE (03:01)
[2016-12-21 03:19] VITALS: BP 138/87
== END 2016-12-21 03:19 | disposition home or self-care (01) ==
LOC: ER 22:31
DX: R10.13 Epigastric pain (principal); G89.18 Other acute postprocedural pain; R11.2 Nausea with vomiting, unspecified
CPT/HCPCS: 99284; 96372; 36415; 83690; 85025; 80053; 81001; 74022; J3490 ×2; J0500; J2550

== ENCOUNTER → 2017-03-13 | Outpatient (CLI) | payer BC ==
--- NOTE | 2017-03-13 18:31 | WOMENS IMAGING REPORT ---
EXAM DESCRIPTION: 3D SCREENING MAMMO BILAT COMPLETED DATE/TIME: 03/13/2017 1:27 pm REASON FOR STUDY: ROUTINE SCREENING; Z12.31 Z12.31 ENCNTR SCREEN MAMMOGRAM FOR MALIGNANT NEOPLASM O F IRMA COMPARISON: Multiple since 2008 TECHNIQUE: Standard craniocaudal and mediolateral oblique views of each breast recorded using digita l acquisition and breast tomosynthesis. LIMITATIONS: None. FINDINGS: Findings present which are benign by mammographic criteria. No suspicious masses, calcifi cations or architectural distortion. Pertinent benign findings: Benign arterial vascular calcifications bilaterally Read with the assistance of CAD. .[facility] - R2 Cenova Version 1.3 .[facility] - R2 Cenova Version 1.3 .[facility] - R2 Cenova Version 2.4 .[facility] [place] - R2 Cenova Version 2.4 .[facility] - R2 Puff Ironer Version 9.2 Benign mammographic findings may include one or more of the following: Smooth masses, popcorn/rim/co arse calcifications, asymmetries, post-procedure changes, and lesions with long-standing stability. IMPRESSION: BENIGN MAMMOGRAPHIC FINDINGS. BIRADS 2 BREAST DENSITY: b. There are scattered areas of fibroglandular density. BIRAD: 2 BENIGN FINDING(S) RECOMMENDATION: RECOMMENDATION: ROUTINE SCREENING Please continue bilateral screening tomosynthesis in March 2018 COMMENT: The patient has been notified of the results by letter per SA requirements. Additional no tification policies are in place for contacting patient with suspicious or incomplete findings. Quality ID #[id number]: The [employer] recommends an annual screening mammogram for women aged 40 years or over. This facility utilizes a reminder system to ensure that all patients receive reminder letters, and/or direct phone calls for appointments. This includes reminders for routine scr eening mammograms, diagnostic mammograms, or other Breast Imaging Interventions when appropriate. Th is patient will be placed in the appropriate reminder system. The [employer] (ACR) has developed recommendations for screening MRI of the breast s in certain patient populations, to be used in conjunction with mammography. Breast MRI surveillanc e may be appropriate for women with more than 20% lifetime risk of developing breast cancer as deter mined by genetic testing, significant family history of the disease, or history of mantle radiation f or Hodgkins Disease. ACR Practice Guidelines 2008. DBT Technology DBT is a type of tomographic mammography. With conventional mammography, overlapping breast tissue ma y make lesions difficult to detect, even with good compression. DBT uses an x-ray tube that rotates a round the breast, taking images at different angles. These images are then combined to create thin sl ices of the breast that the radiologist can view as a 3D reconstruction. The MOG unit can perform full-field digital mammograms (2D imaging); or DBT (3D imaging); or both, in a combination mode that quickly performs both the mammogram and the tomosynthesis scan while the breast is still compressed. PQRS 6045F: Fluoroscopic imaging is not utilized for breast tomosynthesis. TECHNICAL DOCUMENTATION: FINDING NUMBER: (1) ASSESSMENT: (1) JOB ID: [id number] [employer]- All Rights Reserved
== END ==
LOC: WI 13:04
PROVIDERS: ATTEND Physician Assistant
DX: Z12.31 Encounter for screening mammogram for malignant neoplasm of breast (principal); Z13.820 Encounter for screening for osteoporosis
CPT/HCPCS: 77063; G0202; 77067

== ENCOUNTER → 2017-04-07 | Outpatient (CLI) | payer BC ==
--- NOTE | 2017-04-07 14:50 | WOMENS IMAGING REPORT ---
EXAM DESCRIPTION: BONE DENSITY HIP/SPINE COMPLETED DATE/TIME: 04/07/2017 10:44 am REASON FOR STUDY: OSTEOPOROSIS M81.0 AGE-RELATED OSTEOPOROSIS W/O CURRENT PATHOLOGICAL FRAC COMPARISON: 07/31/2014 TECHNIQUE: Dual-Energy X-ray Absorptiometry (DEXA) of the AP Spine and Hip. LIMITATIONS: None. FINDINGS: LUMBAR SPINE: The bone mineral density (BMD) measured from L1-L4 in the AP projection correlates with a T-score of -1.3, which is osteopenic as defined by the World Health Organization. Please note that this represe nts a 6% decline in bone density compared to 2013. HIP: The bone mineral density (BMD) measured in the left femoral neck at the hip correlates with a T-score of -0.9, which is normal as defined by the World Health Organization. This is not statistically sig nificantly different from 2013 IMPRESSION: 1. LUMBAR SPINE: Osteopenic 2. HIP: Normal COMMENT: The World Health Organization defines low BMD as follows: T-score: Normal: Greater than -1.0 Osteopenia: Between -1.0 and -2.5 Osteoporosis: Less than -2.5 without fractures Established osteoporosis: Less than -2.5 with fractures In general, you may wish to consider: Diagnosis Treatment Follow-up DEXA Normal BMD Prevention 2-3 years Osteopenia Prevention/Therapy 1-2 years Osteoporosis Therapy Yearly TECHNICAL DOCUMENTATION: JOB ID: [id number]- All Rights Reserved
== END ==
LOC: WI 10:22
PROVIDERS: ATTEND Physician Assistant
DX: Z13.820 Encounter for screening for osteoporosis (principal); M85.88 Other specified disorders of bone density and structure, other site
CPT/HCPCS: 77080

== ENCOUNTER 2018-05-20 06:16 | Emergency (ER) | payer BC ==
--- NOTE | 2018-05-20 06:37 | ER Document Report ---
ED Medical Screen (RME) - General Chief Complaint: Epigastric Pain Stated Complaint: ABDOMINAL PAIN Time Seen by Provider: 05/20/18 06:27 Notes: Patient is a 62-year-old female presenting with epigastric abdominal pain. Patient states pain started this morning along with vomiting. Stated pain is sharp in nature but does not radiate to her back. States pain radiates to right and left upper quadrant. Patient has history of cholecystectomy. Denies history of pancreatitis. Denies pain moving into her chest or history of GERD. Patient denies shortness of breath, diarrhea, lightheadedness, chest pain, dysuria.. Physical exam: Epigastric abdominal pain more so upon palpation. LS CTA no WOB. I have greeted and performed a rapid initial assessment of this patient. A comprehensive ED assessment and evaluation of the patient, analysis of test results and completion of the medical decision making process will be conducted by additional ED providers. TRAVEL OUTSIDE OF THE [place] IN LAST 30 DAYS: No - Related Data Allergies/Adverse Reactions: codeine [Codeine] Allergy (Verified 12/20/16 22:33) Penicillins Adverse Reaction (Intermediate, Verified 12/20/16 22:33) yeast infection tetracycline [Tetracycline] Adverse Reaction (Intermediate, Verified 12/20/16 22 :33) yeast infection Past Medical History - Past Medical History Cardiac Medical History: Reports: Hx Hypercholesterolemia, Hx Hypertension Denies: Hx Coronary Artery Disease, Hx Heart Attack Pulmonary Medical History: Denies: Hx Asthma, Hx Bronchitis, Hx COPD, Hx Pneumonia Neurological Medical History: Denies: Hx Cerebrovascular Accident, Hx Seizures Renal/ Medical History: Denies: Hx Peritoneal Dialysis Musculoskeltal Medical History: Denies Hx Arthritis Psychiatric Medical History: Denies: Hx Depression Past Surgical History: Reports: Hx Cholecystectomy, Hx Thyroid Surgery - thyroidectomy, Hx Tonsillectomy, Hx Tubal Ligation. Denies: Hx Hysterectomy - Immunizations Immunizations up to date: Yes Hx Diphtheria, Pertussis, Tetanus Vaccination: Yes Doctor's Discharge - Discharge Referrals: CAMRYN LU PA-C [Primary Care Provider] - Follow up as needed
[2018-05-20] MEDS: MORPHINE SULFATE 10 MG/ML INJ IV ONE ×2 (06:42→11:06)
[2018-05-20] MEDS: ONDANSETRON HCL INJ/PF 4 MG/2 ML SDV IV ONE ×3 (06:42→11:15)
[2018-05-20] MEDS: NORMAL SALINE 1000 ML 1,000 ML IV ONE (06:42)
[2018-05-20 06:47] LABS: ABSOLUTE BASOPHILS # (AUTO) 0.1 10^3/uL (0.0-0.2); ABSOLUTE EOSINOPHILS # (AUTO) 0.1 10^3/uL (0.0-0.6); ABSOLUTE MONOCYTES (AUTO) 0.7 10^3/uL (0.1-1.4); ABSOLUTE NEUT (AUTO) 12.5 10^3/uL (1.7-8.2); BASOPHILS % (AUTO) 0.4 % (0-2); EOSINOPHILS % (AUTO) 0.7 % (0-6); HEMATOCRIT 42.9 % (36.0-47.0); HEMOGLOBIN 14.8 g/dL (12.0-15.5); MEAN CORPUSCULAR HEMOGLOBIN 28.4 pg (27.0-33.4); MEAN CORPUSCULAR HGB CONC 34.5 g/dL (32.0-36.0); MEAN CORPUSCULAR VOLUME 83 fl (80-97); MONOCYTES % (AUTO) 5.1 % (3-13); PLATELET COUNT 313 10^3/uL (150-450); RED BLOOD COUNT 5.21 10^6/uL (3.72-5.28); RED CELL DISTRIBUTION WIDTH 14.7 % (11.5-14.0); SEGMENTED NEUTROPHILS % (AUTO) 86.8 % (42-78); TOTAL CELLS COUNTED % (AUTO) 100 %; WHITE BLOOD COUNT 14.4 10^3/uL (4.0-10.5)
--- NOTE | 2018-05-20 06:48 | EKG REPORT ---
SEVERITY:- NORMAL ECG - SINUS RHYTHM : Confirmed by: Denise Sarabia MD 20-May-2018 06:47:46
[2018-05-20 06:58] LABS: ALANINE AMINOTRANSFERASE 20 U/L (9-52); ALBUMIN 4.7 g/dL (3.5-5.0); ALKALINE PHOSPHATASE 111 U/L (38-126); ANION GAP 13 (5-19); ASPARTATE AMINO TRANSFERASE 26 U/L (14-36); BILIRUBIN,DIRECT 0.4 mg/dL (0.0-0.4); BILIRUBIN,TOTAL 1.1 mg/dL (0.2-1.3); BLOOD UREA NITROGEN 13 mg/dL (7-20); CALCIUM 9.6 mg/dL (8.4-10.2); CARBON DIOXIDE 27 mmol/L (22-30); CHLORIDE 100 mmol/L (98-107); GLUCOSE 143 mg/dL (75-110); LIPASE 17.5 U/L (23-300); SODIUM 139.9 mmol/L (137-145); TOTAL PROTEIN 8.5 g/dL (6.3-8.2)
[2018-05-20 07:01] LABS: APPEARANCE,URINE CLEAR; BILIRUBIN,URINE NEGATIVE (NEGATIVE); COLOR,URINE STRAW; GLUCOSE, URINE NEGATIVE (NEGATIVE); KETONES,URINE NEGATIVE (NEGATIVE); LEUKOCYTE ESTERASE,URINE TRACE (NEGATIVE); NITRITE,URINE NEGATIVE (NEGATIVE); PROTEIN,URINE 100 mg/dL (NEGATIVE); URINE SPECIFIC GRAVITY 1.011; UROBILINOGEN,URINE NEGATIVE mg/dL (<2.0)
[2018-05-20 07:50] LABS: CREATINE KINASE MB 1.22 ng/mL (<4.55)
[2018-05-20 07:52] LABS: TROPONIN I < 0.012 ng/mL
--- NOTE | 2018-05-20 08:49 | ER Document Report ---
ED General - General Chief Complaint: Epigastric Pain Stated Complaint: ABDOMINAL PAIN Time Seen by Provider: 05/20/18 06:27 Mode of Arrival: Ambulatory Information source: Patient Notes: Patient presents to the emergency department with complaints of epigastric pain nausea vomiting and feeling bloated for the past 2 days. Patient reports she has had this pain for the past week and a half but it was intermittent and felt like she was bloated and she would have episodes of stabbing epigastric pain that made her feel like the area was on fire. For the past two days the pain has been constant. She reports the pain was so bad last night she decided come to the emergency department. Reports history of Angy in 2017 where they thought she had had an obstructed stone but she did not. She reports diarrhea twice on Thursday but not any since that time. Last bowel movement was yesterday but it was dark. Denies fever. Denies trauma. Denies chest pain. TRAVEL OUTSIDE OF THE [place] IN LAST 30 DAYS: No - HPI Onset: Other Onset/Duration: Persistent Quality of pain: Burning, Stabbing Severity: Severe Pain Level: 5 Associated symptoms: Nausea, Vomiting Exacerbated by: Movement Relieved by: Denies Similar symptoms previously: No Recently seen / treated by doctor: No - Related Data Allergies/Adverse Reactions: codeine [Codeine] Allergy (Verified 12/20/16 22:33) Penicillins Adverse Reaction (Intermediate, Verified 12/20/16 22:33) yeast infection tetracycline [Tetracycline] Adverse Reaction (Intermediate, Verified 12/20/16 22 :33) yeast infection Past Medical History - General Information source: Patient - Social History Smoking Status: Never Smoker Chew tobacco use (# tins/day): No Frequency of alcohol use: None Drug Abuse: None Occupation: retired Lives with: Family Family History: Other Patient has suicidal ideation: No Patient has homicidal ideation: No - Past Medical History Cardiac Medical History: Reports: Hx Hypercholesterolemia, Hx Hypertension Denies: Hx Coronary Artery Disease, Hx Heart Attack Pulmonary Medical History: Denies: Hx Asthma, Hx Bronchitis, Hx COPD, Hx Pneumonia Neurological Medical History: Denies: Hx Cerebrovascular Accident, Hx Seizures Renal/ Medical History: Denies: Hx Peritoneal Dialysis Musculoskeletal Medical History: Denies Hx Arthritis Psychiatric Medical History: Denies: Hx Depression Past Surgical History: Reports: Hx Cholecystectomy, Hx Thyroid Surgery - thyroidectomy, Hx Tonsillectomy, Hx Tubal Ligation. Denies: Hx Hysterectomy - Immunizations Immunizations up to date: Yes Hx Diphtheria, Pertussis, Tetanus Vaccination: Yes Review of Systems - Review of Systems Notes: Review HPI for review of systems., All other systems negative Physical Exam - Vital signs Vitals: Resp 30 H 05/20/18 06:09 - Notes Notes: PHYSICAL EXAMINATION: GENERAL:No acute distress but patient has received morphine and zofran, reports feeling better pain decreased HEAD: Atraumatic, normocephalic. EYES: Pupils equal round extraocular movements intact, sclera anicteric, conjunctiva are normal. ENT: nares patent, oropharynx clear NECK: Normal range of motion, supple without lymphadenopathy LUNGS: CTAB and equal. No wheezes rales or rhonchi. HEART: Regular rate and rhythm without murmurs ABDOMEN: TTP Right upper quad. bloated EXTREMITIES: Normal range of motion, no pitting edema. No cyanosis. NEUROLOGICAL: Cranial nerves grossly intact. Normal sensory/motor exams. PSYCH: Normal mood, normal affect. SKIN: Warm, Dry, normal turgor, no rashes or lesions noted Course - Re-evaluation Re-evalutation: 05/20/18 08:49 Patient and instructed on plan of care. Verbalized understanding. Reports pain is decreased resting comfortably. Labs unremarkable, CT ordered 05/20/18 12:05 Family at bedside, reports pt pain is under control no further vomiting, pt at CT. 05/20/18 14:19 labs unremarkable, ct shows diverticulosis, pt updated, pt reports gi cocktail helped, has maalox at home, no further vomiting, reports she feels better. instructed on the importance of follow-up with primary care Dr. Rodriguez and GI provider Dr. Manning. She verbalized understanding. - Vital Signs Vital signs: Temp Pulse Resp BP Pulse Ox 98.6 F 72 15 128/83 H 93 05/20/18 14:45 05/20/18 14:45 05/20/18 14:45 05/20/18 14:45 05/20/18 14:45 - Laboratory Result Diagrams: 05/20/18 06:30 05/20/18 06:30 Laboratory results interpreted by me: 05/20/18 05/20/18 05/20/18 06:30 06:30 06:30 WBC 14.4 H RDW 14.7 H Seg Neutrophils % 86.8 H Lymphocytes % 7.0 L Absolute Neutrophils 12.5 H Est GFR (Non-Af Amer) 59 L Glucose 143 H Total Protein 8.5 H Lipase 17.5 L Urine Protein 100 H Ur Leukocyte Esterase TRACE H - Diagnostic Test Radiology reviewed: Image reviewed, Reports reviewed - COMPARISON: 12/09/2016 TECHNIQUE: CT scan of the abdomen and pelvis performed with intravenous and oral contrast using helical scanning technique with dynamic intravenous contrast injection. Images reviewed with lung, soft tissue, and bone windows. Reconstructed coronal and sagittal MPR images reviewed. Delayed images for evaluation of the urinary system also acquired. All images stored on PACS. All CT scanners at this facility use dose modulation, iterative reconstruction, and/ or weight based dosing when appropriate to reduce radiation dose to as low as reasonably achievable (ALARA). [facility]: Dose Right [facility]: CareDose [facility]: Dose Right [facility]: Teradose 4D [facility]: Appwapp CONTRAST TYPE AND DOSE: contrast/ concentration: Isovue 350.00 mg/ml; Total Contrast Delivered: 81.0 ml; Total Saline Delivered: 68.0 ml RENAL FUNCTION: GFR > 60. RADIATION DOSE: CT Rad equipment meets quality standard of care and radiation dose reduction techniques were employed. CTDIvol: 8.2 - 11.6 mGy. DLP: 1083 mGy-cm. . LIMITATIONS: None. FINDINGS: LOWER CHEST: No significant findings. No nodules or infiltrates. LIVER: Subcentimeter low-density lesion too small to characterize. SPLEEN: Normal size. No focal lesions. PANCREAS: No masses. No significant calcifications. No adjacent inflammation or peripancreatic fluid collections. Pancreatic duct not dilated. GALLBLADDER: Surgically absent. ADRENAL GLANDS: No significant masses or asymmetry. RIGHT KIDNEY AND URETER: No solid masses. No significant calcifications. No hydronephrosis or hydroureter. LEFT KIDNEY AND URETER: No solid masses. No significant calcifications. No hydronephrosis or hydroureter. AORTA AND VESSELS: No aneurysm. No dissection. Renal arteries, SMA, celiac without stenosis. RETROPERITONEUM: No retroperitoneal adenopathy, hemorrhage or masses. BOWEL AND PERITONEAL CAVITY: Diverticulosis descending and sigmoid colon. No obstruction. No visualized masses. No free fluid. No inflammatory changes or thickening of bowel wall. APPENDIX: Normal. PELVIS: No significant masses. Normal bladder. No free fluid. ABDOMINAL WALL: No masses. No hernias. BONES: No significant or acute findings. OTHER: No other significant finding. IMPRESSION: Diverticulosis. No acute findings - EKG Interpretation by Me EKG shows normal: Sinus rhythm Rate: Normal Rhythm: NSR Discharge - Discharge Clinical Impression: Epigastric abdominal pain Nausea & vomiting Qualifiers: Vomiting type: unspecified Vomiting Intractability: unspecified Qualified Code( s): R11.2 - Nausea with vomiting, unspecified Diverticulosis Qualifiers: Diverticulosis site: diverticulosis of large intestine Diverticulosis bleeding : diverticulosis without bleeding Qualified Code(s): K57.30 - Diverticulosis of large intestine without perforation or abscess without bleeding Condition: Stable Disposition: HOME, SELF-CARE Instructions: Abdominal Pain ([facility]), Antinausea Medication ([facility]), Intravenous ( IV) Fluids ([facility]), Vomiting ([facility]) Additional Instructions: *You have been evaluated for epigastric abdominal pain, nausea/vomiting, diverticulosis *Take medication as prescribed * clear liguid diet, advance as tolerated, Drink enough fluids to stay hydrated *Follow up with a primary care provider, dr rodriguez, within one week *Follow up with Dr Manning within one week *Return to ED for worsening condition, changes, needs *Return to ED if not better in 24 hours Prescriptions: Dicyclomine HCl [Bentyl 20 mg Tablet] 20 mg PO QID #40 tablet Ondansetron [Zofran Odt 4 mg Tablet] 1 - 2 tab PO Q4H #10 tab.kyledis Referrals: CAMRYN LU PA-C [Primary Care Provider] - Follow up in 1 week OLMAN MANNING MD [ACTIVE STAFF] - Follow up in 3-5 days
--- NOTE | 2018-05-20 12:22 | RADIOLOGY REPORT (SQ) ---
EXAM DESCRIPTION: CT ABD/PELVIS WITH IV ORAL COMPLETED DATE/TIME: 05/20/2018 12:04 pm REASON FOR STUDY: abd pain, n/v COMPARISON: 12/09/2016 TECHNIQUE: CT scan of the abdomen and pelvis performed with intravenous and oral contrast using terry callum scanning technique with dynamic intravenous contrast injection. Images reviewed with lung, soft t issue, and bone windows. Reconstructed coronal and sagittal MPR images reviewed. Delayed images for e valuation of the urinary system also acquired. All images stored on PACS. All CT scanners at this facility use dose modulation, iterative reconstruction, and/or weight based d osing when appropriate to reduce radiation dose to as low as reasonably achievable (ALARA). [facility]: Dose Right [facility]: CareDose [facility]: Dose Right [facility]: Teradose 4D [facility]: Source4Style CONTRAST TYPE AND DOSE: contrast/concentration: Isovue 350.00 mg/ml; Total Contrast Delivered: 81.0 ml; Total Saline Delivered: 68.0 ml RENAL FUNCTION: GFR > 60. RADIATION DOSE: CT Rad equipment meets quality standard of care and radiation dose reduction techniq ues were employed. CTDIvol: 8.2 - 11.6 mGy. DLP: 1083 mGy-cm. . LIMITATIONS: None. FINDINGS: LOWER CHEST: No significant findings. No nodules or infiltrates. LIVER: Subcentimeter low-density lesion too small to characterize. SPLEEN: Normal size. No focal lesions. PANCREAS: No masses. No significant calcifications. No adjacent inflammation or peripancreatic fluid collections. Pancreatic duct not dilated. GALLBLADDER: Surgically absent. ADRENAL GLANDS: No significant masses or asymmetry. RIGHT KIDNEY AND URETER: No solid masses. No significant calcifications. No hydronephrosis or hyd roureter. LEFT KIDNEY AND URETER: No solid masses. No significant calcifications. No hydronephrosis or hydr oureter. AORTA AND VESSELS: No aneurysm. No dissection. Renal arteries, SMA, celiac without stenosis. RETROPERITONEUM: No retroperitoneal adenopathy, hemorrhage or masses. BOWEL AND PERITONEAL CAVITY: Diverticulosis descending and sigmoid colon. No obstruction. No visuali zed masses. No free fluid. No inflammatory changes or thickening of bowel wall. APPENDIX: Normal. PELVIS: No significant masses. Normal bladder. No free fluid. ABDOMINAL WALL: No masses. No hernias. BONES: No significant or acute findings. OTHER: No other significant finding. IMPRESSION: Diverticulosis. No acute findings. TECHNICAL DOCUMENTATION: JOB ID: [id number] Quality ID # [id number]: Final reports with documentation of one or more dose reduction techniques (e.g., Au tomated exposure control, adjustment of the mA and/or kV according to patient size, use of iterative reconstruction technique) 2010 [employer]- All Rights Reserved Reading location - IP/workstation name: [email or web address] [id number]
[2018-05-20] MEDS: LIDOCAINE 2% VISCOUS SOLN 20 ML UDCUP PO ONE (13:34)
[2018-05-20] MEDS: METOCLOPRAMIDE HCL ORAL SOLN 10 MG/10 ML UDCUP PO ONE (13:34)
[2018-05-20] MEDS: MAG HYDROX/AL HYDROX/SIMETH SUSP 30 ML UDCUP PO ONE (13:34)
[2018-05-20 14:48] VITALS: BP 128/83
== END 2018-05-20 14:45 | disposition home or self-care (01) ==
LOC: ER 06:16
DX: R10.13 Epigastric pain (principal); R11.2 Nausea with vomiting, unspecified; K57.30 Diverticulosis of large intestine without perforation or abscess without bleeding; Z90.49 Acquired absence of other specified parts of digestive tract; Z98.51 Tubal ligation status
CPT/HCPCS: 93005; 96376; 99284; 96361; 96374; 96375; 36415; 82553; 82550; 83690; 85025; 82272; 80053; 81001; 84484; 74177; 93010; J3490; J2270; J2405; J7030

== ENCOUNTER → 2018-08-25 | Outpatient (CLI) | payer BC ==
--- NOTE | 2018-08-25 12:24 | WOMENS IMAGING REPORT ---
EXAM DESCRIPTION: 3D SCREENING MAMMO BILAT COMPLETED DATE/TIME: 08/25/2018 11:41 am REASON FOR STUDY: SCREENING MAMMO Z12.31 ENCNTR SCREEN MAMMOGRAM FOR MALIGNANT NEOPLASM OF IRMA COMPARISON: Multiple since 2008 TECHNIQUE: Standard craniocaudal and mediolateral oblique views of each breast recorded using digita l acquisition and breast tomosynthesis. LIMITATIONS: None. FINDINGS: No masses, calcifications or architectural distortion. No areas of suspicion. Read with the assistance of CAD. .[facility] - R2 C[employer]ova Version 1.3 .[facility] - R2 Cenova Version 1.3 .[facility] - R2 Cenova Version 2.4 .[facility] - R2 Cenova Version 2.4 .[facility] - R2 [employer] Classifier Version 9.2 IMPRESSION: NORMAL MAMMOGRAM. BIRADS 1. BREAST DENSITY: c. The breasts are heterogeneously dense, which may obscure small masses. BIRAD: 1 NEGATIVE RECOMMENDATION: ROUTINE SCREENING COMMENT: The patient has been notified of the results by letter per SA requirements. Additional no tification policies are in place for contacting patient with suspicious or incomplete findings. Quality ID #[id number]: The [employer] recommends an annual screening mammogram for women aged 40 years or over. This facility utilizes a reminder system to ensure that all patients receive reminder letters, and/or direct phone calls for appointments. This includes reminders for routine scr eening mammograms, diagnostic mammograms, or other Breast Imaging Interventions when appropriate. Th is patient will be placed in the appropriate reminder system. The [employer] (ACR) has developed recommendations for screening MRI of the breast s in certain patient populations, to be used in conjunction with mammography. Breast MRI surveillanc e may be appropriate for women with more than 20% lifetime risk of developing breast cancer as deter mined by genetic testing, significant family history of the disease, or history of mantle radiation f or Hodgkins Disease. ACR Practice Guidelines 2008. DBT Technology DBT is a type of tomographic mammography. With conventional mammography, overlapping breast tissue ma y make lesions difficult to detect, even with good compression. DBT uses an x-ray tube that rotates a round the breast, taking images at different angles. These images are then combined to create thin sl ices of the breast that the radiologist can view as a 3D reconstruction. The [employer] unit can perform full-field digital mammograms (2D imaging); or DBT (3D imaging); or both, in a combination mode that quickly performs both the mammogram and the tomosynthesis scan while the breast is still compressed. PQRS 6045F: Fluoroscopic imaging is not utilized for breast tomosynthesis. TECHNICAL DOCUMENTATION: FINDING NUMBER: (1) ASSESSMENT: (1) JOB ID: [id number] [employer]- All Rights Reserved Reading location - IP/workstation name: [email or web address]
== END ==
LOC: WI 11:13
PROVIDERS: ATTEND Physician Assistant
DX: Z12.31 Encounter for screening mammogram for malignant neoplasm of breast (principal)
CPT/HCPCS: 77063; 77067

== ENCOUNTER → 2020-03-28 | Outpatient (CLI) | payer MEDICARE, OTHER ==
--- NOTE | 2020-03-28 11:48 | WOMENS IMAGING REPORT ---
EXAM DESCRIPTION: BONE DENSITY HIP/SPINE IMAGES COMPLETED DATE/TIME: 03/28/2020 10:31 am REASON FOR STUDY: Z78.0 ASYMPTOMATIC MENOPAUSAL STATE Z12.31 ENCNTR SCREEN MAMMOGRAM FOR MALIGNANT NEOPLASM OF IRMA Z78.0 ASYMPTOMATIC MENOPAUSAL STATE COMPARISON: 04/07/2017 TECHNIQUE: Dual-Energy X-ray Absorptiometry (DEXA) of the AP Spine and Hip. LIMITATIONS: None. FINDINGS: LUMBAR SPINE: The bone mineral density (BMD) measured from L1-L4 in the AP projection correlates with a T-score of -1.2, which is osteopenia as defined by the World Health Organization. BMD Change vs Baseline: -4.0%. BMD change from previous: 2.1% HIP: The bone mineral density (BMD) measured in the left hip correlates with a T-score of -1.0, which is o steopenia as defined by the World Health Organization. BMD Change vs Baseline: -2.3%. BMD change from previous: -0.9%. 10 year Fracture Risk Assessment: Major Osteoporotic Fracture: 8.3% Hip Fracture: 0.7% IMPRESSION: 1. LUMBAR SPINE WHO CLASSIFICATION: OSTEOPENIA. 2. HIP WHO CLASSIFICATION: OSTEOPENIA. OVERALL ASSESSMENT: WHO CLASSIFICATION: OSTEOPENIA. COMMENT: The World Health Organization defines low BMD as follows: T-score: Normal: At or above -1.0 Osteopenia: Between -1.0 and -2.5 Osteoporosis: At or below -2.5 without fractures Established osteoporosis: At or below -2.5 with fractures In general, you may wish to consider: Diagnosis Treatment Follow-up DEXA Normal BMD Prevention 2-3 years Osteopenia Prevention/Therapy 1-2 years Osteoporosis Therapy Yearly TECHNICAL DOCUMENTATION: JOB ID: [id number] 2010 [employer]- All Rights Reserved Reading location - IP/workstation name: [email or web address]
--- NOTE | 2020-03-28 12:35 | WOMENS IMAGING REPORT ---
EXAM DESCRIPTION: 3D SCREENING MAMMO BILAT IMAGES COMPLETED DATE/TIME: 03/28/2020 10:31 am REASON FOR STUDY: Z12.31 ENCNTR SCREEN MAMMOGRAM FOR MALIGNANT NEOPLASM OF BREAST Z12.31 ENCNTR SCR EEN MAMMOGRAM FOR MALIGNANT NEOPLASM OF IRMA Z78.0 ASYMPTOMATIC MENOPAUSAL STATE COMPARISON: 08/25/2018, 03/13/2017, 01/17/2014 EXAM PARAMETERS: Views: Standard craniocaudal and mediolateral oblique views of each breast recorded using digital acquisition and breast tomosynthesis. Read with the assistance of CAD. .[facility] - R2 Electrical Software Engineer Version 9.2 LIMITATIONS: None. FINDINGS: No suspicious masses, suspicious calcifications or architectural distortion. No areas of c oncern. IMPRESSION: NEGATIVE MAMMOGRAM. BIRADS 1. BREAST DENSITY: b. There are scattered areas of fibroglandular density. BIRAD: ASSESSMENT: 1 NEGATIVE RECOMMENDATION: ROUTINE SCREENING COMMENT: The patient has been notified of the results by letter per SA requirements. Additional no tification policies are in place for contacting patient with suspicious or incomplete findings. Quality ID #[id number]: The [employer] recommends an annual screening mammogram for women aged 40 years or over. This facility utilizes a reminder system to ensure that all patients receive reminder letters, and/or direct phone calls for appointments. This includes reminders for routine scr eening mammograms, diagnostic mammograms, or other Breast Imaging Interventions when appropriate. Th is patient will be placed in the appropriate reminder system. TECHNICAL DOCUMENTATION: FINDING NUMBER: (1) ASSESSMENT: (1) JOB ID: [id number] 2010 [employer]- All Rights Reserved Reading location - IP/workstation name: [email or web address]
== END ==
LOC: WI 09:52
PROVIDERS: ATTEND Physician Assistant
DX: Z12.31 Encounter for screening mammogram for malignant neoplasm of breast (principal); Z78.0 Asymptomatic menopausal state
CPT/HCPCS: 77063; 77067; 77080